=== PATIENT | female | born 1945 | race Two or more races ===

== ENCOUNTER 2021-01-05 16:01 | Emergency (ER) | payer OTHER ==
[~2021-01-05] VITALS: Ht 162.6 cm; Wt 69.9 kg
[2021-01-05] MEDS ORDERED: NASAL MIST126 ML (19:48)
[2021-01-05] MEDS ORDERED: ZITHROMAX500 MG PO (20:01)
== END 2021-01-05 20:10 | disposition home or self-care (01) ==
LOC: ER 16:01
DX: U07.1 COVID-19 (principal); R50.9 Fever, unspecified